=== PATIENT | male | born 1985 | race African-American/Black ===

== ENCOUNTER 2018-03-05 22:36 | Emergency (ER) | payer OTHER ==
[~2018-03-05] VITALS: Ht 182.9 cm; Wt 71.2 kg
[2018-03-05 23:43] VITALS: BP 128/57
== END 2018-03-06 01:09 | disposition home or self-care (01) ==
LOC: ER 22:42
DX: S62.306A Unspecified fracture of fifth metacarpal bone, right hand, initial encounter for closed fracture (principal); V00.131A Fall from skateboard, initial encounter; Y93.51 Activity, roller skating (inline) and skateboarding; Y92.89 Other specified places as the place of occurrence of the external cause; Y99.8 Other external cause status
CPT/HCPCS: 29125; 73130